=== PATIENT | female | born 2000 | race Caucasian/White ===

== ENCOUNTER → 2023-03-02 09:30 | Outpatient (BNVA) | payer BC, SELFPAY | PROVIDERS: Visit Provider Nurse Practitioner Family | DX: K52.9 Noninfective gastroenteritis and colitis, unspecified (principal) | CPT/HCPCS: 80053 ==

== ENCOUNTER 2025-07-11 19:07 | Emergency (ER) | payer MEDICAID, SELFPAY ==
--- OUTSIDE RECORDS SUMMARY | 2024-11-08 06:20 | XMS_ITS ---
Author Organization [facility] Address [address] [place] [address] Care Team Providers Care Grief Counsellor Name Role Phone Bri Hicks Primary Care Provider Percy Mcdonald MD Unavailable Unavailable Encounters Encounter Location Date Provider Diagnosis [facility] Office [address] [address] 11/08/2024 Bri Hicks Plan Of Treatment No Information Progress Notes * KAYLEE CRISTOFERDOB:[birth year] (24 yo F)Acc No.[id number]:11/08/2024 Progress Notes Patient: CRISTOFER BEST Provider: Brian Hicks APRN :2000 A ge:24 Y S ex:Female Date:11/08/2024 Address:[address] [place] [address], [address], [id number] Billing Information: * Procedure Codes: Care Plan Details* * Electronic signature of Miladys Hicks APN on 07/11/2025 at 11:03 PM CDT Sign off status: Pending * Provider: Brian Hicks APRN Date: 1 01/09/2024 Generated for Lupe gentile/Julia/Antonioitting on: 0 07/11/2025 11:03 PM CDT
--- OUTSIDE RECORDS SUMMARY | 2025-07-09 05:40 | XMS_ITS ---
Author Organization [facility] Address [address] [place] [address] Care Team Providers Care Mobile Architect Name Role Phone KaydenBri augustine Primary Care Provider Percy Mcdonald MD Unavailable Unavailable Allergies Allergen (clinical drug ingredient) Drug/Non Drug Allergy documented on EMR Reaction Allergy Type Onset Date Status Substance with sulfonamide structure and antibacterial mechanism of action (substance) Sulfa Antibiotics Unknown Drug Allergy Active REASON FOR VISIT MED REFILL, Cervical Cancer Screening Needed Medications Medication SIG (Take, Route, Frequency, Duration) Notes Start Date End Date Status hydrOXYzine HCl 25 MG Tablet 1 tablet as needed Orally Once a day; Duration: 30 days Active traZODone HCl 100 MG Tablet 1 tablet at bedtime as needed Orally Once a day; Duration: 30 days Active busPIRone HCl 15 MG Tablet 1 tablet Orally Twice a day Not-Taking clonazePAM 0.5 MG Tablet 1 tablet Orally Once a day; Duration: 30 days Stop lexapro 07/09/2025 Active Social History Tobacco Use: Social History Observation Description Date Details (start date - stop date) Former Smoker NA - NA Social History Depression Screening Social Info Question Answer Notes PHQ-9 Little interest or pleasure in doing thin gs Not at all Feeling down, depressed, or hopeless Not at all Trouble falling or staying asleep, or sleeping t oo much Not at all Feeling tired or having little energy Not at all Poor appetite or overeating Not at all Feeling bad about yourself, or that you are a failure, or have let yourself or your family down Not at all Trouble concentrating on thi ngs, such as reading the newspaper or watching television Not at all Moving or speaking so slowly that other people could have noticed. Or the opposite ? being so fidgety or restless that you have been moving around a lot more than usual Not at all Thoughts that you would be b alexander off , or of hurting yourself in some way Not at all Total Score 0 Tobacco Use: Social Info Question Answer Notes xTobacco Use/Smoking Are you a former smoker How long has it been since you last smoked? 1-5 years Section Notes: H/o tob 1yr, negative illicit drugs & etoh, lives with fiance and son, safe, denies h/o abuse, works at [employer]. Depression screen 11/10/2024 score 0 07/09/25 PHQ9 Problems Problem Type SNOMED Code ICD Code Onset Dates Problem Status W/U Status Risk Notes Problem Insomnia (G47.00) Active confirmed Encounters Encounter Location Date Provider Diagnosis [facility] Office [address] [address] 07/09/2025 Bri Hicks Anxiety F41.9 ; Insomnia G47.00 and Depression screen Z13.31 Assessments Encounter Date Diagnosis (ICD Code) Assessment Notes Treatment Notes Treatment Clinical Notes Section Notes 07/09/2025 Anxiety (ICD-10 - F41.9) Recheck in 1 month. Questions asked and answered; discharged to home. 07/09/2025 Insomnia (ICD-10 - G47.00) 07/09/2025 Depression screen (ICD-10 - Z13.31) Plan Of Treatment Medication Medication Name Sig Start Date Stop Date Notes Escitalopram Oxalate 20 mg Tablet TAKE ONE TABLET BY MOUTH ONCE DAILY traZODone HCl 100 MG Tablet 1 tablet at bedtime as needed Orally Once a day; Duration: 30 days clonazePAM 0.5 MG Tablet 1 tablet Orally Once a day; Duration: 30 days 07/09/2025 Stop lexapro Treatment Notes Assessment Notes Anxiety Recheck in 1 month. Questions asked and answered; discharged to home. Next Appt Details Follow Up: 1 month, Reason: History and Physical Notes * HPI (History of Present Illness) Category Sub-Category Detail Notes Category Not es Patient Complaints Anxiety The anxiety h as been present for: for the past year The anxiety started: gradual ly and has gotten worse The severity of the anxiety: is moderate The nature of the anxiety: i s a feeling of panic, is a feeling of worry Aggravating factors include: work, colle ge, feels overwhelmed Medication(s) include: Lexapro, hydroxyz ine, trazodone Overall condition: is worsening , does n ot feel Lexapro is working, request changing to an as needed like Clonazepam Examination Category Sub-Category Detail Notes Category Not es General Examination GENERAL APPEARANCE: alert, w ell hydrated, in no distress EYES: PERRL; normal conjun ctiva NECK/THYROID: neck supple, full ra nge of motion HEART: regular rate and rhy thm LUNGS: clear to auscultatio n bilaterally SKIN: warm and dry , no ra shes MUSCULOSKELETAL: normal PSYCH: judgement and insigh t good , thought content without suicidal ideation, delusions , thought process logical, goal directed Progress Notes * GUERRERO PAGEMATTDOB:[birth year] (24 yo F)Acc No.[id number]:07/09/2025 Progress Notes Patient: CRISTOFER BEST Provider: Brian Hicks APRN :2000 A ge:24 Y S ex:Female Date:07/09/2025 Address:[address] [place], [place] [id number] Check In:10:31 AM CSTCheck 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: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 Subjective: * Chief Complaints: * M ED REFILLCervical Cancer Screening Needed * HPI: P atient Complaints: Anxiety T he anxiety has been present for f or the past year T he anxiety started g radually and has gotten worse T he severity of the anxiety i s moderate T he nature of the anxiety i s a feeling of panic, is a feeling of worry A ggravating factors include w ork, college, feels overwhelmed M edication(s) include L exapro, hydroxyzine, trazodone O verall condition i s worsening , does not feel Lexapro is working, request changing to an as needed like Clonazepam * ROS: G eneral - Multi System: Constitutional D enies fever, chills, body aches, change in appetite, or problems with sleep. C ardiovascular D enies any recent chest pain, irregular heart beats, syncope, or shortness of breath. R espiratory D enies any shortness of breath, cough, or hemoptysis.. G astrointestinal D enies a bdominal pain, r ecent change in bowel habits. M usculoskeletal D enies any joint pain or swelling, no recent trauma.. I ntegumentary D enies any rashes, bruising, or skin changes.. P sychiatric R eports a nxiety. D enies depression or suicidal thoughts/actions.. 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 * OB History: G P G ravida: 1. * Surgical History: T&A Deviated septum Surgical History verified. * Hospitalization/Major Diagno stic Procedure: see surgical hx Hospitalization Verified. * Family History: Janice wylie Grand Mother: breast cancer. F amily History Verified.. * Social History: T obacco Use: x Tobacco Use/Smoking A re you a f ormer smoker H ow long has it been since you last smoked??1-5 years D epression Screening: P HQ-9 L ittle interest or pleasure in doing things?Not at all F eeling down, depressed, or hopeless N ot at all T rouble falling or staying asleep, or sleeping too much N ot at all F eeling tired or having little energy N ot at all P oor appetite or overeating N ot at all F eeling bad about yourself, or that you are a failure, or have let yourself or your family down N ot at all T rouble concentrating on things, such as reading the newspaper or watching television N ot at all M oving or speaking so slowly that other people could have noticed. Or the opposite ? being so fidgety or restless that you have been moving around a lot more than usual N ot at all T houghts that you would be better off , or of hurting yourself in some way N ot at all T otal Score 0 S ocial History Verified. H /o tob 1yr, negative illicit drugs & etoh, lives with fiance and son, safe, denies h/o abuse, works at [employer]. Depression screen 11/10/2024 score 0 07/09/25 PHQ9. * Medications: T akingtraZODone HCl 50 MG Tablet 1 tablet at bedtime as needed Orally Once a day hydrOXYzine HCl 25 MG Tablet 1 tablet as needed Orally Once a day Escitalopram Oxalate 20 mg Tablet TAKE ONE TABLET BY MOUTH ONCE DAILY Taking traZODone HCl 50 MG Tablet 1 tablet at bedtime as needed Orally Once a day Taking hydrOXYzine HCl 25 MG Tablet 1 tablet as needed Orally Once a day Taking Escitalopram Oxalate 20 mg Tablet TAKE ONE TABLET BY MOUTH ONCE DAILY Not-TakingbusPIRone HCl 15 MG Tablet 1 tablet Orally Twice a day Medication List reviewed and reconciled with the patientNot- Taking busPIRone HCl 15 MG Tablet 1 tablet Orally Twice a day Medication List reviewed and reconciled with the patient * Allergies: S ulfa AntibioticsyesAllergies Verified. Objective: * Examination: G eneral Examination: GENERAL APPEARANCE: a lert, well hydrated, in no distress.? EYES: P ERRL; normal conjunctiva. NECK/THYROID: n joyce supple, full range of motion. SKIN: w arm and dry , no rashes. HEART: r egular rate and rhythm. LUNGS: c lear to auscultation bilaterally. MUSCULOSKELETAL: n ormal. PSYCH: j udgement and insight good , thought content without suicidal ideation, delusions , thought process logical, goal directed. Assessment: * Assessment: 1. A nxiety - F41.9 (Primary) 2 . I nsomnia - G47.00 3 .?Depression screen - Z13.31 Plan: * Treatment: 2. I nsomnia Increase traZODone HCl Tablet, 100 MG, 1 tablet at bedtime as needed, Orally, Once a day, 30 days, 30 Tablet, Refills 2. * Procedure Codes: 9 6127 BRIEF EMOTIONAL/BEHAV ASSMT * Preventive Medicine: Screenings: C ERVICAL CANCER SCREENING: Cancer screening cervical (age 21-64)?* Date of the last PAP Smear : 0 03/13/2022 D EPRESSION SCREENING: Date of most recent screenin 07/09/2025 P HQ9 11/10/24. * Follow Up: 1 month Billing Information: * Visit Code: 51706 Office Visit, Est Pt., Level 4. * Procedure Codes: 99594 BRIEF EMOTIONAL/BEHAV ASSMT. Care Plan Details* * Sign off status: Completed true * Provider: Brian Hicks APRN Date: 0 07/09/2025 Generated for Lupe gentile/Julia/James on: 0 07/11/2025 11:03 PM CDT
[2025-07-11 19:13] VITALS: BP 127/86; PULSE 111; RESP 17; TEMP 37.1; O2SAT 98; BMI 36.6
[2025-07-11 21:49] VITALS: BP 145/96; PULSE 101; O2SAT 98
--- NOTE | 2025-07-11 22:01 | CTR_ITS ---
PROCEDURE INFORMATION: Exam: CT Abdomen And Pelvis With Contrast Exam date and time: 07/11/2025 11:21 PM Age: 24 years old Clinical indication: Abdominal pain; Other: Rlq TECHNIQUE: Imaging protocol: Computed tomography of the abdomen and pelvis with contrast. Radiation optimization: All CT scans at this facility use at least one of these dose optimization techniques: automated exposure control; mA and/or kV adjustment per patient size (includes targeted exams where dose is matched to clinical indication); or iterative reconstruction. Contrast material: OMNI 350; Contrast volume: 100 ml; Contrast route: INTRAVENOUS (IV); COMPARISON: No relevant prior studies available. RADIATION DOSE METRICS: Total DLP (mGy-cm): 1011.01 FINDINGS: Liver: Unremarkable. No mass. Gallbladder and biliary ducts: Gallbladder is contracted. Pancreas: Unremarkable. No ductal dilation. Spleen: Unremarkable. No splenomegaly. Adrenal glands: Normal. No mass. Kidneys and ureters: Unremarkable. No hydronephrosis. Stomach and bowel: Bowel demonstrate no obstruction Appendix: The appendix is normal Intraperitoneal space: No intra-abdominal or pelvic free air or free fluid demonstrated. Vasculature: Unremarkable. No abdominal aortic aneurysm. Lymph nodes: Unremarkable. No enlarged lymph nodes. Urinary bladder: Unremarkable as visualized. Reproductive: Unremarkable as visualized. Bones/joints: Unremarkable. No acute fracture. Soft tissues: Unremarkable. CT/CT abdomen pelvis w con* [id number] IMPRESSION: No acute localized inflammatory abnormalities present abdomen or pelvis
[2025-07-11 22:04] LABS: HCG, Serum Qual Negative (Negative)
[2025-07-11 22:06] LABS: Hematocrit 34.9 % (36-47); Hemoglobin 11.70 g/dL (11.27-16.99); Mean Corpuscular HGB Conc 33.5 g/dL (30-55); Mean Corpuscular Hemoglobin 29.0 pg (27-33); Mean Corpuscular Volume 86.6 fl (85-98); Nucleated Red Blood Cells % 0 %; Platelet Count 309 10^3/cmm (157-399); Red Blood Count 4.03 10^6/uL (3.85-5.65); White Blood Count 11.29 10^3/uL (3.29-11.43)
[2025-07-11 22:08] LABS: Glucose Urine UA Negative (Normal); Nitrate Urine Negative (Negative)
[2025-07-11 22:11] LABS: Alanine Aminotransferase 14 U/L (0-33); Albumin Level 3.8 g/dL (3.5-5.2); Alkaline Phosphatase 71 U/L (35-105); Anion Gap 12.7 (5-19); Aspartate Amino Transferase 13 U/L (0-32); Blood Urea Nitrogen 9 mg/dL (6-20); Calcium 8.7 mg/dL (8.5-10.5); Carbon Dioxide 26 mmol/L (22-29); Chloride 102 mmol/L (98-107); Creatinine Clr Calc Pharmacy 92.2707; Globulin 2.8 g/dL (1.3-4.6); Glucose 116 mg/dL (65-115); Lipase 23 U/L (13-60); Osmolality Calculated 284 mOsm/kg (285-295); Potassium 3.7 mmol/L (3.5-5.1); Sodium 137 mmol/L (136-145); Total Protein 6.6 g/dL (6.6-8.7)
[2025-07-11 22:12] LABS: Add Urine Microscopic? YES
[2025-07-11 22:12] LABS: Lactic Sepsis W/Reflex 1.1 mmol/L (0.5-2.2)
[2025-07-11 22:28] LABS: Specific Gravity, Urine 1.053 (1.005-1.030)
[2025-07-11 22:34] LABS: Other Crystals Urine AMM BIURATE /hpf
--- OUTSIDE RECORDS SUMMARY | 2025-07-11 23:03 | XMS_ITS | Patient Health Record ---
Author Organization [facility] Address [address] [place] [address] Care Team Providers Care Cloth Reeler Name Role Phone Bri Hicks Primary Care Provider [phone] Percy Mcdonald MD Unavailable Unavailable GonzalezLeobardoCandy Unavailable [phone] Adriana Maria Unavailable [phone] Allergies Allergen (clinical drug ingredient) Drug/Non Drug Allergy documented on EMR Reaction Allergy Type Onset Date Status Substance with sulfonamide structure and antibacterial mechanism of action (substance) Sulfa Antibiotics Unknown Drug Allergy Active Reason For Referral No Information Medications Medication SIG (Take, Route, Frequency, Duration) [...] Duration: 30 days Stop lexapro 07/09/2025 Active Immunizations Vaccine Route Administration Date Status Comme nts DTaP Unknown 06/09/2006 Administered Fluarix Quadrivalent Unknown 09/03/2014 Administered Flucelvax Trivalent, Syringe 0.5 mL, PF Unknown 10/09/2024 Refused Flulaval, Trivalent, Syringe, 0.5mL, PF Unknown 09/12/2013 Administered Hep A, ped/adol, 2 dose Unknown 09/07/2016 Administered Hep B, adolescent or pediatric (11-19), 3 dose schedule Unknown 2000 Administered Hib (PRP-T), 4 dose schedule, ActHIB Unknown 2000 Administered HPV (human papillomavirus), quadrivalent, 3 dose schedule Unknown 01/04/2012 Administered Influenza - Split Unknown 09/17/2009 Administered IPV Unknown 2000 Administered Meningococcal MCV4 (CVX 114) Unknown 05/15/2014 Administered Meningococcal MCV4O (CVX 136) Unknown 09/07/2016 Administered MMR Unknown 06/09/2006 Administered Novel [id number] Unknown 09/17/2009 Administered Td (adult), absorbed Unknown 09/15/2024 Administered Tdap IM Intramuscular 08/18/2021 Administered Varicella (Varicella-Zoster/Chicken Pox) Unknown 11/03/2011 Administered DTaP Unknown 02/12/2003 Administered DTaP Unknown 03/29/2001 Administered DTaP Unknown 01/24/2001 Administered DTaP Unknown 2000 Administered Fluarix Quadrivalent Unknown 10/05/2019 Administered Fluarix Quadrivalent Unknown 10/12/2018 Administered Fluarix Quadrivalent Unknown 09/07/2016 Administered Fluarix Quadrivalent Unknown 09/16/2015 Administered Hep A, ped/adol, 2 dose Unknown 05/15/2014 Administered Hep B, adolescent or pediatric (11-19), 3 dose schedule Unknown 2000 Administered Hep B, adolescent or pediatric (11-19), 3 dose schedule Unknown 03/29/2001 Administered Hib (PRP-T), 4 dose schedule, ActHIB Unknown 03/09/2002 Administered Hib (PRP-T), 4 dose schedule, ActHIB Unknown 03/29/2001 Administered Hib (PRP-T), 4 dose schedule, ActHIB Unknown 01/24/2001 Administered HPV (human papillomavirus), quadrivalent, 3 dose schedule Unknown 11/03/2011 Administered HPV (human papillomavirus), quadrivalent, 3 dose schedule Unknown 06/08/2012 Administered Influenza - Split Unknown 09/20/2012 Administered Influenza - Split Unknown 08/30/2011 Administered Influenza - Split Unknown 10/09/2010 Administered IPV Unknown 06/09/2006 Administered IPV Unknown 08/31/2001 Administered IPV Unknown 01/24/2001 Administered MMR Unknown 08/31/2001 Administered Tdap Unknown 06/08/2012 Administered Varicella (Varicella-Zoster/Chicken Pox) Unknown 08/31/2001 Administered Social History Tobacco Use: Social History Observation Description Date Details (start date - stop date) Former Smoker NA - NA Social History Depression Screening Social Info Question Answer Notes depression screening findings Findings Negative (0 -4) PHQ-9 Little interest or p breanna in doing things Not at all Feeling down, depressed, or [...] been since you last smoked? 1-5 years Additional Details Category Social Info Options Details Drugs/Alcohol: Do you smoke marijuana? De nies Do you drink alcohol? 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 Depression screen 11/10/2024 score 0 H/o tob 1yr, negative illicit drugs & etoh, lives with fiance and son, safe, denies h/o abuse, works at [employer]. 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[employer] H/o tob 1yr, negative illici t drugs & etoh, lives with fiance, safe, 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 h/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, 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[employer] H/o tob 1yr, negative illici t drugs & etoh, lives with fiance, safe, 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 h/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, 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[employer] H/o tob 1yr, negative illici t drugs & etoh, lives with fiance, safe, 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 h/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, 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[employer] Problems Problem Type SNOMED Code ICD Code Onset Dates Problem Status W/U Status Risk Notes Problem Unspecified pre-existing hypertension complicating childbirth (O10.92) Active confirmed Problem Maternal obesity complicating , childbirth and the puerperium, antepartum (351401785468) Obesity complicating , unspecified trimester (O99.210) Active confirmed Problem Obesity in mother complicating childbirth (disorder) (563791022435719 00) Obesity complicating childbirth (O99.214) Active confirmed Problem Anxiety (41904487) Anxiety (F41.9) Active confirmed Problem Essential hypertension (57363947) Hypertension, unspecified type (I10) Active confirmed Problem Insomnia (447165231) Insomnia (G47.00) Active confirmed Problem Obesity (061802144) Obesity (BMI 30-39.9) (E66.9) Active confirmed Problem Obesity (525336557) Obesity (E66.9) Active confirmed Vital Signs Heart Rate 101 /min 11/10/2024 Temperature 97.5 degrees Fahrenheit 11/10/2024 Respiratory Rate 20 /min 11/10/2024 Blood pressure diastolic 87 mm Hg 11/10/2024 Oximetry 98 % 11/10/2024 Height-cm 165.1 cm 11/10/2024 Weight-kg 93.44 kg 11/10/2024 Height 65 in 11/10/2024 Blood pressure systolic 128 mm Hg 11/10/2024 Weight 206 lbs 11/10/2024 BMI 34.28 kg/m2 11/10/2024 Encounters Encounter Location Date Provider Diagnosis [facility] Office [address] [address] 10/09/2024 Bri Batterton Anxiety F41.9 ; Encounter for immunization Z23 and Immunization not carried out because of patient refusal Z28.21 [facility] [address] [address] 11/10/2024 [facility] Depression screen Z13.31 ; Obesity (BMI 30-39.9) E66.9 and Anxiety F41.9 [facility] [address] [address] 07/09/2025 Bri Batterton Anxiety F41.9 ; Insomnia G47.00 and Depression screen Z13.31 [facility] [address] [address] 12/19/2024 Bri Batterton Anxiety F41.9 Assessments Encounter Date Diagnosis (ICD Code) Assessment Notes Treatment Notes Treatment Clinical Notes Section Notes 10/09/2024 Anxiety (ICD-10 - F41.9) Recheck in 1 month. 11/10/2024 Depression screen (ICD-10 - Z13.31) 11/10/2024 Obesity (BMI 30-39.9) (ICD-10 - E66.9) 12/19/2024 Anxiety (ICD-10 - F41.9) 07/09/2025 Anxiety (ICD-10 - F41.9) Recheck in 1 month. Questions asked and answered; discharged to home. 07/09/2025 Insomnia (ICD-10 - G47.00) 07/09/2025 Depression screen (ICD-10 - Z13.31) 11/10/2024 Anxiety (ICD-10 - F41.9) lexapro 20 10/09/2024 Encounter for immunization (ICD-10 - Z23) 10/09/2024 Immunization not carried out because of patient refusal (ICD-10 - Z28.21) 11/10/2024 Other Questions asked and answered; discharged to home. Plan Of Treatment No Information Insurance Providers Payer Name Payer Address Payer Phone Subscriber Number Group Number Insured Name Patient Relationship to Insured Coverage Start Date Coverage End Date Home [facility] Medicaid Replacement [address] [place] [phone] [id number] CRISTOFER PAGE Self - patient is the insured Medical (General) History Medical History History ICD Code HTN Surgical History Surgery Date(Month/Year) T&A Deviated septum Hospitalization History Reason Date(Month/Year) see surgical hx
--- OUTSIDE RECORDS SUMMARY | 2025-07-11 23:04 | XMS_ITS | Patient Health Record ---
Author Organization [facility] Main Address [address] [place], [place] [address] Care Team Providers Care Alliance Manager Name Role Phone ADELINE DAGMAR Primary Care Provider Allergies Allergen (clinical drug ingredient) Drug/Non Drug Allergy documented on EMR Reaction Allergy Type Onset Date Status Substance with sulfonamide structure and antibacterial mechanism of action (substance) Sulfonamides (uncoded) Unknown Allergy Activ e Reason For Referral No Information Medications Medication SIG (Take, Route, Frequency, Duration) Notes Start Date End Date Status Slynd 4 MG 1 tablet by mouth da shahbaz, as directed per BIOMETRICS SPECIALIST; Duration: 28 Active hydroCHLOROthiazide 25 MG 1 tablet in th e morning Orally Once a day; Duration: 30 day(s) Active Social History Tobacco Use: Social History Observation Description Date Details (start date - stop date) Never Smoker NA - NA Tobacco Use/Smoking Question Answer Notes Tobacco use: nonsmoker Problems Problem Type SNOMED Code ICD Code Onset Dates Problem Status W/U Status Risk Notes Problem Essential hypertension (56983681) Essential (primary) hypertension (I10) 06/26/20 16 Active confirmed [id number]-[id number] 2830- Problem Low risk (qualifier value) (362202839) Low Risk Level (D07) 12/09/19 18 Active confirmed [id number]-[id number] 2830- Problem Acute otitis externa (81424077) Other acute otitis externa (380.22) 05/04/20 13 Inactive confirmed [id number]-119 2830- Problem Acute sinusitis (61961053) Acute sinusitis, unspecified (461.9) 03/22/20 15 Inactive confirmed Rusty-119 2830- Problem Nausea and vomiting (50835739) Nausea with vomiting (787.01) 01/22/20 15 Inactive confirmed Rusty-119 2830- Problem Diarrhea (42293164) Diarrhea (787.91) 01/22/20 15 Inactive confirmed Rusty-119 2830- Problem Conjunctivitis due to adenovirus (294299431) Conjunctivitis due to adenovirus (B30.1) 06/06/20 18 Inactive confirmed Rusty-119 2830- Problem Chronic tension-type headache (627577770) Chronic tension-type headache, intractable (G44.221) 01/24/20 18 Inactive confirmed Rusty-119 2830- Problem Acute serous otitis media of left ear (7777374799970188 ) Acute serous otitis media, left ear (H65.02) 09/28/20 17 Inactive confirmed Rusty-119 2830- Problem Pain of ear (finding) (848725570) Otalgia, unspecified ear (H92.09) 12/28/19 17 Inactive confirmed Rusty-119 2830- Problem Acute maxillary sinusitis (11895737) Acute recurrent maxillary sinusitis (J01.01) 05/24/20 18 Inactive confirmed Rusty-119 2830- Problem Acute pansinusitis (0513590) Acute pansinusitis, unspecified (J01.40) 10/01/20 15 Inactive confirmed Rusty-119 2830- Problem Acute pharyngitis (741663512) Acute pharyngitis due to other specified organisms (J02.8) 01/24/20 18 Inactive confirmed Rusty-119 2830- Problem Acute pharyngitis (242285458) Acute pharyngitis, unspecified (J02.9) 07/22/20 15 Inactive confirmed Rusty-119 2830- Problem Allergic rhinitis caused by pollen (disorder) (53522312) Allergic rhinitis due to pollen (J30.1) 08/17/20 17 Inactive confirmed Rusty-119 2830- Problem Hypertrophy of tonsils (01425065) Hypertrophy of tonsils (J35.1) 07/22/20 15 Inactive confirmed Rusty-119 2830- Problem Residual hemorrhoidal skin tags (81019954) Residual hemorrhoidal skin tags (K64.4) 10/12/20 17 Inactive confirmed Rusty-119 2830- Problem Thrombosed hemorrhoids (65248360) Perianal venous thrombosis (K64.5) 10/12/20 17 Inactive confirmed Rusty-119 2830- Problem Hemorrhoids (84270657) Other hemorrhoids (K64.8) 10/12/20 17 Inactive confirmed Rusty-119 2830- Problem Furuncle of right upper limb (8770669670205007 9) Furuncle of right upper limb (L02.423) 03/18/20 17 Inactive confirmed Rusty-119 2830- Problem Localized infection of skin AND/OR subcutaneous tissue (165280528) Other specified local infections of the skin and subcutaneous tissue (L08.89) 07/28/20 17 Inactive confirmed Rusty-119 2830- Problem Erythema multiforme (73107620) Erythema multiforme, unspecified (L51.9) 04/05/20 17 Inactive confirmed Rusty-119 2830- Problem Disorder of skin AND/OR subcutaneous tissue (45999556) Other specified disorders of the skin and subcutaneous tissue (L98.8) 07/28/20 17 Inactive confirmed Rusty-119 2830- Problem Pain in limb (53306673) Pain in right finger(s) (M79.644) 06/27/20 18 Inactive confirmed Rusty-119 2830- Problem Acute cystitis (16019292) Acute cystitis without hematuria (N30.00) 12/09/19 18 Inactive confirmed Rusty-119 2830- Problem Cough (72891932) Cough (R05) 08/17/20 17 Inactive confirmed Rusty-119 2830- Problem Pain in throat (867402522) Pain in throat (R07.0) 01/24/20 18 Inactive confirmed Rusty-119 2830- Problem Nausea and vomiting (47372227) Nausea with vomiting, unspecified (R11.2) 08/09/20 15 Inactive confirmed Rusty-119 2830- Problem Eruption of skin (677006274) Rash and other nonspecific skin eruption (R21) 07/28/20 17 Inactive confirmed Rusty-119 2830- Problem Fever (279345302) Fever presenti ng with conditions classified elsewhere (R50.81) 01/14/20 17 Inactive confirmed Rusty-119 2830- Problem Surveillance of oral contraception done (604409519811481) Encounter for surveillance of contraceptive pills (Z30.41) 05/24/20 18 Inactive confirmed Rusty-119 2830- Problem Body mass index 30+ - obesity (472469421) Body mass index (BMI) 30.0-30.9, adult (Z68.30) 06/27/20 18 Inactive confirmed Rusty-119 2830- Problem Nausea and vomiting (56296443) Nausea and vomiting (787.01) 03/01/20 15 Inactive confirmed Rusty-119 2830- Problem Finger pain (48575369) Finger pain (729.5) 03/12/20 15 Inactive confirmed Rusty-119 2830- Problem Allergic disposition (595607335) Allergic reaction, NOS (995.3) 04/02/20 15 Inactive confirmed Rusty-119 2830- Problem Sprain of foot (38685723) Foot sprain, other (845.19) 02/13/20 15 Inactive confirmed Rusty-119 2830- Plan Of Treatment No Information Insurance Providers Payer Name Payer Address Payer Phone Subscriber Number Group Number Insured Name Patient Relationship to Insured Coverage Start Date Coverage End Date [place] [address] [place] [phone] [id number] Samantha Mullins Self - patient is the insured 1 Medical (General) History Medical History History ICD Code Hypertension Surgical History Surgery Date(Month/Year) Tonsillectomy + Adenoidectomy; 12/24/2016 Tubal ligation 05/2022
--- NOTE | 2025-07-11 23:08 | W.ED.ABDPA2 ---
HPI - Abdominal Pain General: Chief Complaint: Abdominal Pain Stated Complaint: right side lower stomach pain Time Seen by Provider: 07/11/25 21:45 History of Present Illness: Is a 24-year-old female with a history of obesity and depression who presents the emergency room with abdominal pain. Says she is been having right lower quadrant abdominal pain. Said is very sharp. She has had some nausea but no vomiting. She says she had a temp of 101 yesterday. She took Tylenol and that fixed it. Related Data Home Medications ?Medication ?Instructions ?Recorded ?Confirmed fluoxetine PO DAILY 03/01/23 03/01/23 losartan PO DAILY 03/01/23 03/01/23 Previous Rx's ?Medication ?Instructions ?Recorded ondansetron HCl 4 mg tablet 4 mg PO Q6H PRN nausea and 03/01/23 vomiting #30 tabs cephalexin 500 mg tablet 500 mg PO TID 7 days #21 tabs 07/11/25 Allergies Allergy/AdvReac Type Severity Reaction Status Date / Time Sulfa (Sulfonamide Allergy Unknown Verified 03/01/23 16:00 Antibiotics) Review of Systems Narrative: Constitutional symptoms: Negative except as documented in HPI. Skin symptoms: Negative except as documented in HPI. Eye symptoms: Negative except as documented in HPI. ENMT symptoms: Negative except as documented in HPI. Respiratory symptoms: Negative except as documented in HPI. Cardiovascular symptoms: Negative except as documented in HPI. Gastrointestinal symptoms: Negative except as documented in HPI. Genitourinary symptoms: Negative except as documented in HPI. Musculoskeletal symptoms: Negative except as documented in HPI. Neurologic symptoms: Negative except as documented in HPI. Psychiatric symptoms: Negative except as documented in HPI. Endocrine symptoms: Negative except as documented in HPI. Physical Exam Narrative: EXAM NARRATIVE: General: Alert, no acute distress. Skin: Warm, dry. Head: Normocephalic, atraumatic. Neck: Supple, trachea midline. Eye: Extraocular movements are intact. Ears, nose, mouth and throat: mucosa moist. Cardiovascular: Regular, Normal peripheral perfusion. Respiratory: Lungs are clear to auscultation, respirations are non-labored, breath sounds are equal, Symmetrical chest wall expansion. Gastrointestinal: Soft, moderate right lower quadrant tenderness to palpation, Non distended Musculoskeletal: Normal ROM, no deformity. Neurological: Alert and oriented, No focal neurological deficit observed. Psychiatric: Cooperative, appropriate mood & affect. Course Vital Signs: Vital signs: Vital Signs Temperature 98.7 F 07/11/25 19:13 Pulse Rate 96 07/11/25 23:34 Respiratory Rate 18 07/11/25 23:34 Blood Pressure 120/90 07/11/25 23:34 Pulse Oximetry 100 07/11/25 23:34 Oxygen Delivery Me thod Room Air 07/11/25 23:34 MDM - Abdominal Pain Medical Decision Making Medical decision making: Differential diagnosis for this patient with right lower quadrant abdominal pain including but not limited to and based on the above HPI, review of systems and physical exam: Ureterolithiasis. Urinary tract infection. Appendicitis. colitis. small bowel obstruction. Crohn's flare. Pancreatitis. Cholelithiasis or cholecystitis. Hepatitis. Diverticulitis. Constipation. ovarian cyst. ovarian torsion Workup: Orders were placed to evaluate differential diagnosis based on the above differential, HPI and exam: Lab Review: Laboratory results were reviewed and interpreted by myself the emergency room physician. No leukocytosis. No anemia. No renal failure. She does have a significant urinary tract infection with 21-50 whites 3+ bacteria and was quite concentrated at 1.053 specific gravity. I reviewed the patient's medical record CT of the abdomen pelvis with contrast: No acute process. This was reviewed and interpreted by myself the emergency room physician. I also reviewed the radiology report. Reexamination: Patient remained stable. No increased work of breathing. No altered mental status. No focal motor deficits. Assessment and plan: Urinary tract infection Dehydration ?Normal saline bolus and IV Rocephin. - Discharged home - Discussed plan with patient. Answered any questions. - Evaluation and treatment of this problem were appropriate in the emergency setting. Lab Data 07/11/25 21:38 07/11/25 21:38 Labs/Radiology: Radiology Impressions Abdomen/Pelvis CT 07/11/25 22:01 IMPRESSION: No acute localized inflammatory abnormalities present abdomen or pelvis Laboratory Results WBC 11.29 10^3/uL (3.29-11.43) 07/11/25 21:38 RBC 4.03 10^6/uL (3.85-5.65) 07/11/25 21:38 Hgb 11.70 g/dL (11.27-16.99) 07/11/25 21:38 Hct 34.9 % (36-47) L 07/11/25 21:38 MCV 86.6 fl (85-98) 07/11/25 21:38 MCH 29.0 pg (27-33) 07/11/25 21:38 MCHC 33.5 g/dL (30-55) 07/11/25 21:38 RDW 12.3 % (12.1-15.1) 07/11/25 21:38 Plt Count 309 10^3/cmm (157-399) 07/11/25 21:38 MPV 10.9 fL (7.4-10.4) H 07/11/25 21:38 Neut % (Auto) 65.2 % 07/11/25 21: Lymph % (Auto) 26.9 % 07/11/25 21:38 [place] % (Auto) 6.3 % 07/11/25 21:38 Eos % (Auto) 1.1 % 07/11/25 21: Baso % (Auto) 0.2 % 07/11/25 21: Neut # (Auto) 7.37 10^3/uL (1.8-7.7) 07/11/25 21:38 Lymph # (Auto) 3.0 10^3/uL (0.8-4.8) 07/11/25 21:38 [place] # (Auto) 0.7 10^3/uL (0.2-0.9) 07/11/25 21:38 Eos # (Auto) 0.1 10^3/uL (0.0-0.8) 07/11/25 21: Baso # (Auto) 0.0 10^3/uL (0.0-0.1) 07/11/25 21:38 Nucleated RBC % (auto) 0 % 07/11/25 21: Nucleated RBCs # 0.0 /100WBC 07/11/25 21:38 Sodium 137 mmol/L (136-145) 07/11/25 21:38 Potassium 3.7 mmol/L (3.5-5.1) 07/11/25 21:38 Chloride 102 mmol/L (98-107) 07/11/25 21:38 Carbon Dioxide 26 mmol/L (22-29) 07/11/25 21:38 Anion Gap 12.7 (5-19) 07/11/25 21:38 BUN 9 mg/dL (6-20) 07/11/25 21:38 Creatinine 1.1 mg/dL (0.5-0.9) H 07/11/25 21:38 GFR Calculation 61.0 mL/min (90-130) L 07/11/25 21:38 Glucose 116 mg/dL (65-115) H 07/11/25 21:38 Calculated Osmolality 284 mOsm/kg (285-295) L 07/11/25 21:38 Lactic Acid 1.1 mmol/L (0.5-2.2) 07/11/25 21:38 Calcium 8.7 mg/dL (8.5-10.5) 07/11/25 21:38 Total Bilirubin 0.3 mg/dL (0.15-1.2) 07/11/25 21:38 AST 13 U/L (0-32) 07/11/25 21:38 ALT 14 U/L (0-33) 07/11/25 21:38 Alkaline Phosphatase 71 U/L (35-105) 07/11/25 21:38 C-Reactive Protein 6.8 mg/L (0.0-4.9) H 07/11/25 21:38 Total Protein 6.6 g/dL (6.6-8.7) 07/11/25 21:38 Albumin 3.8 g/dL (3.5-5.2) 07/11/25 21:38 Globulin 2.8 g/dL (1.3-4.6) 07/11/25 21:38 Lipase 23 U/L (13-60) 07/11/25 21:38 HCG, Qual Negative (Negative) 07/11/25 21:38 Urine Color Dark yellow (Yellow) A 07/11/25 21:50 Urine Appearance Turbid (CLEAR) A 07/11/25 21:50 Urine pH 6.0 (5-7) 07/11/25 21:50 Ur Specific [place] 1.053 (1.005-1.030) H 07/11/25 21:50 Urine Protein 2+ (Negative) A 07/11/25 21:50 Urine Glucose (UA) Negative (Normal) 07/11/25 21:50 Urine Ketones 1+ (Negative) H 07/11/25 21:50 Urine Blood Negative (Negative) 07/11/25 21:50 Urine Nitrate Negative (Negative) 07/11/25 21:50 Urine Bilirubin Negative (Negative) 07/11/25 21:50 Urine Urobilinogen 1.0 mg/dL (Negative) 07/11/25 21:50 Ur Leukocyte Esterase Negative (Negative) 07/11/25 21:50 Urine RBC 3-5 /hpf (0-2) 07/11/25 21:50 Urine WBC 21-50 /hpf (0-5) H 07/11/25 21:50 Ur Squamous Epith Cells 11-20 /hpf (0-5) H 07/11/25 21:50 Other Crystals Amm biurate /hpf 07/11/25 21:50 Amorphous Sediment 3+ /hpf 07/11/25 21:50 Urine Bacteria 1+ /hpf (NONE) H 07/11/25 21:50 Hyaline Casts 7.01 /lpf 07/11/25 21:50 All radiology interpretation(s) finalized by discharge Discharge Plan Discharge Patient Disposition: Home Clinical Impression: Urinary tract infection Condition: Stable Prescriptions: New cephalexin 500 mg tablet 500 mg PO TID 7 Days Qty: 21 0RF No Action losartan PO DAILY fluoxetine PO DAILY ondansetron HCl 4 mg tablet 4 mg PO Q6H PRN (Reason: nausea and vomiting) Qty: 30 0RF Discharge Orders: Discharge ED (Routine); Ordered 07/11/25 Ordered By: Myrna Roque Discharge Diet: Usual diet Discharge Activity: Increase activity as tolerated Patient Instructions: Urinary Tract Infection in Women (ED), Opioid Safety, Pain Management, Patient Portal & Mayte Instructions Activity Restrictions/Additional Instructions: Thank you for choosing [facility] for your healthcare needs today. You have been screened and evaluated and felt safe for discharge. Health conditions do change or evolve sometimes and as such it is important that you follow up with your Primary Doctor to be re checked, 3-5 days is a general good time frame for follow up. You are always welcome to return to the ED for re assessment if your symptoms are worsening or you have new concerns Print Language: Italian Coding Level of Care Code ED Street Car Mechanic for Radha Chappell
[2025-07-11] MEDS: iohexol 350 mg/mL 500 mL Btl (per mL) IV (23:25)
[2025-07-11] MEDS: cefTRIAXone 1,000 mg SDV 1000 MG IVP (23:31)
[2025-07-11 23:34] VITALS: BP 120/90; PULSE 96; RESP 18; O2SAT 100
== END 2025-07-12 00:20 | disposition home or self-care (01) ==
PROVIDERS: Physician Assistant; Emergency Provider Emergency Medicine
DX: N39.0 Urinary tract infection, site not specified (principal)
CPT/HCPCS: 36415; 74177; 80053; 81001; 83605; 83690; 84703; 85025; 86140; 96361; 96374; 99285; J0696; J7030

== ENCOUNTER 2025-10-31 21:01 | Emergency (ER) | payer MEDICAID, SELFPAY ==
[2025-10-31 21:28] VITALS: BP 168/138; PULSE 96; RESP 18; TEMP 36.8; O2SAT 98; BMI 35.9
[2025-10-31 22:23] LABS: Glucose Urine UA Negative (Normal); Nitrate Urine Negative (Negative); Specific Gravity, Urine 1.027 (1.005-1.030)
[2025-10-31 22:25] LABS: HCG Qualitative Urine. Negative (Negative)
[2025-10-31 23:43] VITALS: BP 129/89; PULSE 97; RESP 16; O2SAT 100
--- NOTE | 2025-11-01 00:03 | ED_ITS ---
HPI - Pediatric GI General: Chief Complaint: Nausea/Vomiting/Diarrhea Stated Complaint: had tubes removed, 5 days late for cycle Time Seen by Provider: 10/31/25 23:40 History of Present Illness: 25-year-old female past medical history significant for tubal ligation after childbirth years ago due to severe preeclampsia and no wish for future children, presenting emergency department due to being 5 days late on her menstrual period, she did take multiple normal tests that were negative at home, she reports 1 to 2-day history of intermittent cramping pelvic pain but reports that she is currently asymptomatic, she denies any vaginal discharge, she does endorse unprotected sexual activity with her fianc? and denies any concern for STI, she reports that she has started to bleed since being in the ER and this is consistent with her menstrual cycle, she denies fevers, denies lightheaded dizziness, denies vomiting or diarrhea. She reports that she was treated for UTI symptoms a week ago with an unknown antibiotic that she believes may have been Macrobid, she reports that her UTI symptoms have resolved since then. She denies back or flank pain. Related Data Home Medications ?Medication ?Instructions ?Recorded ?Confirmed fluoxetine PO DAILY 03/01/23 03/01/23 losartan PO DAILY 03/01/23 03/01/23 Previous Rx's ?Medication ?Instructions ?Recorded ondansetron HCl 4 mg tablet 4 mg PO Q6H PRN nausea and 03/01/23 vomiting #30 tabs cefpodoxime 200 mg tablet 200 mg PO BID 5 days #10 tab s 11/01/25 Allergies Allergy/AdvReac Type Severity Reaction Status Date / Time Sulfa (Sulfonamide Allergy Unknown Verified 03/01/23 16:00 Antibiotics) Pediatric Exam Narrative: Narrative: Gen: A&Ox4, no acute distress, nontoxic appearing HEENT: Normocephalic, atraumatic, no scleral icterus, external ears normal, moist mucous membranes Neck: Supple, full range of motion, no observable masses Lungs: No Respiratory distress, Lungs clear to auscultation bilaterally no rales, rhonchi, wheezing CV: Regular rate and rhythm, no murmur, no pitting edema to lower extremities bilaterally Abdomen: Soft, nondistended, nontender to palpation MSK: No joint swelling, FROM all 4 extremities Skin: No rashes, petechiae, lesions. Normal color per patient. Neuro: Alert and oriented, no slurred speech, sensation and strength grossly intact all 4 extremities Psych: Appropriate for situation. Course Vital Signs: Vital signs: Vital Signs Temperature 98.3 F 10/31/25 21:28 Pulse Rate 97 10/31/25 23:43 Respiratory Rate 16 10/31/25 23:43 Blood Pressure 129/89 10/31/25 23:43 Pulse Oximetry 100 10/31/25 23:43 Oxygen Delivery Me thod Room Air 10/31/25 21:28 Medical Decision Making Medical Decision Making 25-year-old female history of tubal ligation presenting to the emergency department with being 5 days late on her menstrual cycle as well as intermittent cramping lower abdominal/pelvic pain which is currently resolved and asymptomatic, patient reports that she has developed some mild vaginal bleeding consistent with early period, she was concerned for possible ectopic or despite the tubal ligation given she is not usually late on her period, currently she has a benign exam and normal vital signs. She has no clinical concern for STI and given her symptoms are currently resolved I have no concern for PID or tubo-ovarian abscess, I did offer her ultrasound of the pelvis to assess for an ovarian cyst however at this time given her symptoms resolved she does not wish to undergo this testing and it is reasonable to defer given I have no concern for ovarian torsion at this time. She understands the need to return to the ED if she develops recurrent or worsening pelvic pain, her urinalysis shows some persistent bacteriuria after recent UTI treatment will change to alternative antibiotic, stable for discharge with return precautions and [employer] referral. Lab Data Labs showing negative test, 1+ bacteria with associated WBCs and leuk esterase and blood possibly consistent with persistent UTI Laboratory Results HCG, Qual Negative (Negative) 10/31/25 21:48 Urine Color Yellow (Yellow) 10/31/25 21:48 Urine Appearance Cloudy (CLEAR) A 10/31/25 21:48 Urine pH 6.5 (5-7) 10/31/25 21:48 Ur Specific [place] 1.027 (1.005-1.030) 10/31/25 21:48 Urine Protein 1+ (Negative) A 10/31/25 21:48 Urine Glucose (UA) Negative (Normal) 10/31/25 21:48 Urine Ketones Trace (Negative) 10/31/25 21:48 Urine Blood 2+ (Negative) A 10/31/25 21:48 Urine Nitrate Negative (Negative) 10/31/25 21:48 Urine Bilirubin Negative (Negative) 10/31/25 21:48 Urine Urobilinogen 1.0 mg/dL (Negative) 10/31/25 21:48 Ur Leukocyte Esterase Trace (Negative) A 10/31/25 21:48 Urine RBC 3-5 /hpf (0-2) 10/31/25 21:48 Urine WBC 10-15 /hpf (0-5) H 10/31/25 21:48 Ur Squamous Epith Cells 10-15 /hpf (0-5) H 10/31/25 21:48 Amorphous Sediment Not Reportable 10/31/25 21:48 Urine Bacteria 1+ /hpf (NONE) H 10/31/25 21:48 Hyaline Casts 1.65 /lpf 10/31/25 21:48 Urine Yeast Trace /hpf 10/31/25 21:48 No radiology studies performed this visit Discharge Plan Discharge Patient Disposition: Home Clinical Impression: Pelvic pain, UTI (urinary tract infection) Condition: Stable Prescriptions: New cefpodoxime 200 mg tablet 200 mg PO BID 5 Days Qty: 10 0RF Rx Instructions: must administer with a meal/food No Action losartan PO DAILY fluoxetine PO DAILY ondansetron HCl 4 mg tablet 4 mg PO Q6H PRN (Reason: nausea and vomiting) Qty: 30 0RF Discharge Orders: Discharge ED (Routine); Ordered 11/01/25 Ordered By: Feliberto Sweeney Referrals: Pedro Llamas MD [Physician, [facility]] Patient Instructions: Pelvic Pain in Women (ED), Patient Portal & Mayte Instru ctions Print Language: Khmer Coding Level of Care Code ED Voice Network Engineer for Radha Chappell
[2025-11-01 00:21] VITALS: BP 129/89; PULSE 94; O2SAT 97
--- NOTE | 2025-11-01 10:32 | DCPLANNER ---
messaged [facility] for er f/u
== END 2025-11-01 00:22 | disposition home or self-care (01) ==
PROVIDERS: Emergency Provider Student in an Organized Health Care Education/Training Program
DX: R10.20 Pelvic and perineal pain unspecified side (principal); N39.0 Urinary tract infection, site not specified
CPT/HCPCS: 81001; 81025; 99283